=== PATIENT | male | born 1950 | race African-American/Black ===

== ENCOUNTER 2019-08-05 16:51 | Emergency (ER) | payer MEDICARE, MEDICAID ==
[~2019-08-05] VITALS: Ht 195.6 cm; Wt 106.6 kg
[2019-08-05 17:10] VITALS: BP 164/88
--- NOTE | 2019-08-05 17:10 | NUR ---
ED Nurse Note: PT FROM HOME WALKED IN DUE TO MEDIAL CP AND NON RADIATING WHILE HE WAS WATCHING TV. STATES CP LASTED X 15MINS. DENIES LIGHTHEADEDNESS, SOB OR N/V. AAO X4, AMBULATES WITH STEADY GAIT WITH NON LABORED BREATHING.
[2019-08-05] MEDS ORDERED: Nitroglycerin 2% oint pkt TOPIC ONE (17:15)
--- NOTE | 2019-08-05 17:30 | NUR ---
ED Nurse Note: RETAIL MANAGER AT THE BED SIDE FOR CXR.
[2019-08-05] MEDS ORDERED: AMLODIPINE BES2.5 MG ORAL (17:36)
[2019-08-05] MEDS ORDERED: LOSARTAN POTASS25 MG ORAL (17:36)
[2019-08-05] MEDS ORDERED: sleeping pill (17:36)
--- NOTE | 2019-08-05 17:39 | Emergency Room Report ---
History of Present Illness General Chief Complaint: Chest Pain Source: Patient Present Illness HPI 68-year-old male history of hypertension history of heart failure, history of cardiac disease presents with chest pain that started at 1 PM lasting a few minutes, not aggravated with exertion no relieving factors severity was moderate lasting a few minutes self resolved no dyspnea on exertion no shortness of breath no nausea no vomiting no diaphoresis patient states he came to the ER to make sure everything was okay currently patient is chest pain-free Allergies: Coded Allergies: No Known Allergies (Unverified , 08/05/19) Patient History Past Medical History: see triage record Reviewed Nursing Documentation: PMH: Agreed; PSxH: Agreed Nursing Documentation-PMH Past Medical History: No History, Except For Hx Cardiac Problems: Yes Hx Hypertension: Yes Review of Systems All Other Systems: negative except mentioned in HPI Physical Exam Vital Signs Date Time Temp Pulse Resp B/P (MAP) Pulse Ox O2 Delivery O2 Flow Rate FiO2 08/05/19 17:00 98.2 74 17 161/102 (121) 99 Room Air Sp02 EP Interpretation: reviewed, normal General Appearance: well appearing, no apparent distress, alert Head: normocephalic, atraumatic Eyes: bilateral eye PERRL, bilateral eye EOMI ENT: uvula midline, moist mucus membranes Neck: supple, thyroid normal, supple/symm/no masses Respiratory: lungs clear, no respiratory distress, no retraction, no accessory muscle use Cardiovascular #1: normal peripheral pulses, regular rate, rhythm, no edema, no gallop, no murmur Gastrointestinal: non tender, soft, no guarding, no rebound Musculoskeletal: normal inspection Neurologic: alert, oriented x3 Psychiatric: mood/affect normal Skin: no rash, warm/dry Medical Decision Making Diagnostic Impression: Primary Impression: Chest pain Qualified Codes: R07.9 - Chest pain, unspecified ER Course 68-year-old male presents with vague complaints of chest pain concerning for possible ACS versus pneumonia versus pneumothorax Patient given aspirin, nitro Patient has been pain-free even before he came to the hospital patient was about to be admitted however patient states he needs to go home he wants to leave AGAINST MEDICAL ADVICE states that he has family affairs take care of The patient has requested to leave the ED against medical advice. The patient reason(s) for leaving include, but are not limited to, the following family affairs to take of I believe this patient is of sound mind and competent to refuse medical care. The patient is responding and asking questions appropriately. The patient is oriented to person, place and time. The patient is not psychotic, delusional, suicidal, homicidal or hallucinating. The patient demonstrates a normal mental capacity to make decisions regarding their healthcare. The patient is clinically sober and does not appear to be under the influence of any illicit drugs at this time. The patient has been advised of the risks, in layman terms, of leaving AMA which include, but are not limited to , coma, permanent disability, loss of current lifestyle, delay in diagnosis. Alternatives have been offered - the patient remains steadfast in their wish to leave. The patient has been advised that should they change their mind they are welcome to return to this hospital, or any other, at any time. The patient understands that in no way does an AMA discharge mean that I do not want them to have the best medical care available. To this end, I have provided appropriate prescriptions, referrals, and discharge instructions. The patient did sign AMA paperwork. The above discussion was witnessed by another member of staff. Counseled patient to follow-up with his doctor patient states he is going to see his doctor tomorrow morning Laboratory Tests Test 08/05/19 17:22 White Blood Count 9.0 K/UL (4.8-10.8) Red Blood Count 4.57 M/UL (4.70-6.10) L Hemoglobin 14.0 G/DL (14.2-18.0) L Hematocrit 44.1 % (42.0-52.0) Mean Corpuscular Volume 97 FL (80-99) Mean Corpuscular Hemoglobin 30.7 PG (27.0-31.0) Mean Corpuscular Hemoglobin Concent 31.7 G/DL (32.0-36.0) L Red Cell Distribution Width 13.6 % (11.6-14.8) Platelet Count 209 K/UL (150-450) Mean Platelet Volume 10.8 FL (6.5-10.1) H Neutrophils (%) (Auto) 63.7 % (45.0-75.0) Lymphocytes (%) (Auto) 29.6 % (20.0-45.0) Monocytes (%) (Auto) 5.0 % (1.0-10.0) Eosinophils (%) (Auto) 0.4 % (0.0-3.0) Basophils (%) (Auto) 1.4 % (0.0-2.0) Sodium Level 139 MMOL/L (136-145) Potassium Level 4.3 MMOL/L (3.5-5.1) Chloride Level 103 MMOL/L (98-107) Carbon Dioxide Level 26 MMOL/L (21-32) Anion Gap 10 mmol/L (5-15) Blood Urea Nitrogen 19 mg/dL (7-18) H Creatinine 1.2 MG/DL (0.55-1.30) Estimate Glomerular Filtration Rate > 60 mL/min (>60) Glucose Level 107 MG/DL (74-106) H Calcium Level 9.3 MG/DL (8.5-10.1) Total Bilirubin 0.8 MG/DL (0.2-1.0) Aspartate Amino Transferase (AST) 12 U/L (15-37) L Alanine Aminotransferase (ALT) 13 U/L (12-78) Alkaline Phosphatase 60 U/L (46-116) Troponin I 0.000 ng/mL (0.000-0.056) Pro-B-Type Natriuretic Peptide 318 pg/mL (0-125) H Total Protein 7.3 G/DL (6.4-8.2) Albumin 3.9 G/DL (3.4-5.0) Globulin 3.4 g/dL Albumin/Globulin Ratio 1.1 (1.0-2.7) Lipase 144 U/L (73-393) EKG Diagnostic Results EKG Time: 17:12 EP Interpretation: NSR, rate 72, QTc 435, no acute ST elevations, left axis deviation Rhythm Strip Diag. Results Rhythm Strip Time: 17:39 EP Interpretation: yes Rate: 76 Rhythm: NSR, no PVC's, no ectopy Chest X-Ray Diagnostic Results Chest X-Ray Diagnostic Results : Chest X-Ray Ordered: Yes # of Views/Limited/Complete: 1 View Indication: Chest Pain EP Interpretation: Yes Interpretation: other Impression: Other - Cardiomegaly Electronically Signed by: Mahesh Gardner MD Last Vital Signs Date Time Temp Pulse Resp B/P (MAP) Pulse Ox O2 Delivery O2 Flow Rate FiO2 08/05/19 17:30 161/102 08/05/19 17:00 98.2 74 17 99 Room Air Disposition: AGAINST MEDICAL ADVICE Condition: Stable Referrals: [facility] Patient Instructions: Nonspecific Chest Pain Additional Instructions: The patient was provided with discharge instructions, notified to follow-up with a primary care doctor and or specialist in the next 24-48 hours, and to return to the ED if they have worsening of their symptoms. Please note that this report is being documented using [employer] technology. This can lead to erroneous entry secondary to incorrect interpretation by the dictating instrument. Mahesh Gardner MD Aug 05, 2019 17:39
[2019-08-05 17:48] LABS: BASOPHILS % (AUTO) 1.4 % (0.0-2.0); EOSINOPHILS % (AUTO) 0.4 % (0.0-3.0); HEMATOCRIT 44.1 % (42.0-52.0); LYMPHOCYTES % (AUTO) 29.6 % (20.0-45.0); MEAN CORPUSCULAR VOLUME 97 FL (80-99); NEUTROPHILS % (AUTO) 63.7 % (45.0-75.0); PLATELET COUNT 209 K/UL (150-450); RED BLOOD COUNT 4.57 M/UL (4.70-6.10); RED CELL DISTRIBUTION WIDTH 13.6 % (11.6-14.8)
[2019-08-05 18:07] LABS: ANION GAP 10 mmol/L (5-15); BLOOD UREA NITROGEN 19 mg/dL (7-18); CALCIUM 9.3 MG/DL (8.5-10.1); CARBON DIOXIDE 26 MMOL/L (21-32); CHLORIDE 103 MMOL/L (98-107); CREATININE 1.2 MG/DL (0.55-1.30); POTASSIUM 4.3 MMOL/L (3.5-5.1); SODIUM 139 MMOL/L (136-145)
[2019-08-05 18:17] LABS: ALANINE AMINOTRANSFERASE 13 U/L (12-78); ALBUMIN 3.9 G/DL (3.4-5.0); ALBUMIN/GLOBULIN RATIO 1.1 (1.0-2.7); ALKALINE PHOSPHATASE 60 U/L (46-116); ASPARTATE AMINO TRANSFERASE 12 U/L (15-37); BILIRUBIN,TOTAL 0.8 MG/DL (0.2-1.0)
--- NOTE | 2019-08-05 18:30 | NUR ---
ED Nurse Note: PT REFUSED TO STAY IN THE HOSPITAL FOR ADMISSION. DR DRAPER NOTIFIED.
[2019-08-05 18:40] VITALS: BP 156/95
--- NOTE | 2019-08-05 18:40 | NUR ---
ER DISCHARGE NOTE: Patient signed AMA form. ERMD explained to pt potential complications of not being hospitalized. pt was given dc instructions, pt was able to verbalize understanding, nitrobid patch removed from pt per ERMD order. pt id band and iv site removed without complications. pt is able to ambulate with steady gait. pt took all belongings.
--- NOTE | 2019-08-06 12:45 | Diagnostic Imaging Report ---
Indication: Dyspnea Comparison: None A single view chest radiograph was obtained. Findings: No definite infiltrate or pulmonary vascular congestion identified. The heart is enlarged. The aorta is mildly enlarged consistent with atherosclerotic vascular disease. 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 Impression: No acute disease
== END 2019-08-05 18:40 | disposition left against medical advice (07) ==
LOC: EMR 17:51 → CANBEDREQ 18:40
DX: R07.9 Chest pain, unspecified (principal); I11.0 Hypertensive heart disease with heart failure; I50.9 Heart failure, unspecified; I51.7 Cardiomegaly
CPT/HCPCS: 36415; 71045; 80053; 83690; 83880; 84484; 85025; 93005; 99283